=== PATIENT | female | born 1980 | race Two or more races ===

== ENCOUNTER 2025-04-17 04:09 | Inpatient (IN) | payer MEDICAID, OTHER ==
[~2025-04-17] VITALS: Ht 157.5 cm; Wt 85.0 kg
--- NOTE | 2025-04-17 06:22 | ED.PDOC ---
Eye-HPI HPI Comments 45 y/o F, presents to the ED for CC of facial pain. Patient states, she has been experiencing right sided ear and eye pain with associated numbness sudden onset, yesterday (04/16/25). Patient reports, since commencement of symptoms she has had decreased sensation on the right side of her face. Patient denies pain when eating, headache, photophobia, or discharge of the eye. No other symptoms or modifying factors are present at this time. Chief Complaint: Face pain Time Seen by MD: 06:22 Reviewed Notes: Nurses Notes, Medications, Allergies Allergies: Coded Allergies: No Known Drug Allergy (Verified Allergy, Unknown, 04/17/25) Information Source: Patient Mode of Arrival: Ambulatory Timing: Days Duration: Since onset Prehospital treatment: None Lids: Normal Conjunctiva: Normal Cornea: Normal Pupils: Normal EOM: Normal Fundus: Normal Slit lamp exam: Normal Anterior chamber: Normal Mouth: Normal ENT Ear Exam: Normal Nose: Normal Sinuses: Normal Oropharynx: Normal Onset: Spontaneous Throat Exposed to: None History of: None Last Tetanus: Unknown Associated signs and symptoms: Ear Pain Past Medical History PAST MEDICAL HISTORY: Denies Surgical History: Denies all surgeries CLASSIFICATION CONTROL CLERK History: Denies all CLASSIFICATION CONTROL CLERK Hx Family History Family History: Unknown Social History Smoker: Non-Smoker Alcohol: Denies ETOH Use Drugs: Denies Drug Use Lives In: Home Constitutional: denies: chills, diaphoresis, fatigue, fever, malaise, sweats, weakness, others EENTM: reports: ear pain, eye pain, others (FACE PAIN); denies: blurred vision, double vision, ear bleeding, ear discharge, ear drainage, ear ringing, eye redness, hearing loss, mouth pain, mouth swelling, nasal discharge, nose bleeding, nose congestion, nose pain, photophobia, tearing, throat pain, throat swelling, voice changes Respiratory: denies: cough, hemoptysis, orthopnea, SOB at rest, shortness of breath, SOB with excertion, stridor, wheezing, others Cardiovascular: denies: chest pain, dizzy spells, diaphoresis, Dyspnea on exertion, edema, irregular heart beat, left arm pain, lightheadedness, palpitations, PND, syncope, others Gastrointestinal: denies: abdomen distended, abdominal pain, blood streaked bowels, constipated, diarrhea, dysphagia, difficulty swallowing, hematemesis, melena, nausea, poor appetite, poor fluid intake, rectal bleeding, rectal pain, vomiting, others Genitourinary: denies: abnormal vagina bleeding, burning, dyspareunia, dysuria, flank pain, frequency, hematuria, incontinence, pain, , vagina discharge, urgency, others Neurological: denies: dizziness, fainting, headache, left sided numbness, left sided weakness, numbness, paresthesia, pre-existing deficit, right sided numbness, right sided weakness, seizure, speech problems, tingling, tremors, weakness, others Musculoskeletal: denies: back pain, gout, joint pain, joint swelling, muscle pain, muscle stiffness, neck pain, others Integumetry: denies: bruises, change in color, change in hair/nails, dryness, laceration, lesions, lumps, rash, wounds, others Allergic/Immunocompromised: denies: Difficulty Healing, Frequent Infections, Hives, Itching, others Hematologic/Lymphatic: denies: anemia, blood clots, easy bleeding, easy bruising, swollen glands, others Endocrine: denies: excessive hunger, excessive sweating, excessive thirst, excessive urination, flushing, intolerance to cold, intolerance to heat, unexplained weight gain, unexplained weight loss, others Psychiatric: denies: anxiety, bipolar disorder, depression, hopeless, panic disorder, schizophrenia, sleepless, suicidal, others All Other Systems: Reviewed and Negative Physical Exam General Appearance: Moderate Distress HEENT: Normal ENT Inspection, Pharynx Normal, TMs Normal Neck: Full Range of Motion, Non-Tender, Normal, Normal Inspection Respiratory: Chest Non-Tender, Lungs Clear, No Accessory Muscle Use, No Respiratory Distress, Normal Breath Sounds Cardiovascular: No Edema, No JVD, No Murmur, No Gallop, Normal Peripheral Pulses, Regular Rate/Rhythm Breast Exam: Deferred Gastrointestinal: No Organomegaly, Non Tender, No Pulsatile Mass, Normal Bowel Sounds, Soft Genitalia: Deferred Pelvic: Deferred Rectal: Deferred Extremities: No calf tenderness, Normal capillary refill, Normal inspection, Normal range of motion, Non-tender, No pedal edema Musculoskeletal : Apperance: Normal Neurologic: Alert, perfume maker II-XII nml as Tested, No Motor Deficits, Normal Affect, Normal Mood, No Sensory Deficits Cerebellar Function: Normal Reflexes: Normal Skin: Dry, Normal Color, Warm Peripheral Pulses: 3+ Radial (R), 3+ Radial (L) Lymphatic: No Adenopathy Was a procedure done? Was a procedure done?: No EENT DIFF Eye: Corneal Abrasion, Iritis/Uveitis Ear: Otitis Externa, Otitis Media Mouth: Other (TMJ) X-Ray, Labs, Meds, VS Vital Signs Date Time Temp Pulse Resp B/P (MAP) Pulse Ox O2 Delivery O2 Flow Rate FiO2 04/17/25 08:33 78 04/17/25 08:00 98.6 80 15 153/70 (97) 99 98.6 04/17/25 07:58 Room Air* 0 21 04/17/25 06:32 Room Air* 0 21 04/17/25 06:28 98.3 83 13 133/81 (98) 99 98.3 04/17/25 04:12 97.8 91 18 168/86 96 97.8 Lab Test 04/17/25 07:43 Range/Units Urine Color Yellow Yellow Urine Clarity Turbid H Clear Urine pH 6.0 5.0-9.0 Urine Specific [place] 1.035 1.001-1.035 Urine Protein 3+ H Negative Urine Ketones Trace Negative Urine Blood 2+ H Negative /uL Urine Nitrite Negative Negative Urine Bilirubin 1+ H Negative Urine Urobilinogen 3 H Negative mg/dL Urine Leukocyte Esterase Trace Negative /uL Urine RBC 10 0 - 4 /hpf Urine Microscopic WBC 29 H 0-5 /HPF Urine Squamous Epithelial Cells Mod <5 /hpf Urine Bacteria Many H None Seen /hpf Urine Hyaline Casts Mod 0 - 2 /lpf Urine Mucus Few None Seen Urine Glucose 2+ H Normal mg/dL Patient alert. Blood pressure elevated. Saturation pristine on room air. Answering questions. Possible TIA. Moving all extremities. Explained to the patient. Continue monitoring. [address] [address] Ph: [phone] DIAGNOSTIC IMAGING Diagnostic Imaging Report : [id number] Signed PATIENT: DEDRICK KRISHNAN ACCT: [id number] UNIT: [id number] : 1980 LOC: ER ROOM / BED: / AGE / SEX: 45 / F ADM STATUS: REG ER SERVICE 0704 ORDERING PHYSICIAN: STEPHANIE PARKER MD PROCEDURE(s): HWOCT - HEAD WITHOUT CONTRAST REASON: tia ORDER NUMBER(s): [id number], ACCESSION NUMBER(s): [id number] CT brain without contrast CLINICAL INDICATION: tia FINDINGS: The study was performed in a multidetector scanner. This study performed taking axial images from the skull base up to the vertex. Both brain and bone windows are photographed. Dose lowering techniques have been used including automated exposure control and adjustment of mA and/or KV according to patient size. Normal and symmetrical shape and density of brain parenchyma above and below the tentorium is seen. There is no mass, midline shift or hydrocephalus. No intra/extra-axial collections demonstrated. There is no intracranial hemorrhage. The calvarium is intact. IMPRESSION: 1. Normal brain and skull. Computed Tomographic Radiation Dosimetry Report: Total CTDI vol = 54 mGy. mGy Total DLP = 960 mGy-cm All CT scans at this medical facility are performed using dose modulation techniques as appropriate to a performed exam including the following: Automated exposure control was utilized; adjustment of the MA and/or KvP according to patient size; and use of iterative reconstruction technique. ATED BY: DALTON BARRIENTOS MD DICTATED DATE/TIME: 04/17/25822 SIGNED BY: DALTON BARRIENTOS MD SIGNED DATE/TIME: 04/17/25822 CC: Time of 1ST Reevaluation: 06:52 Reevaluation 1ST: Unchanged Patient Education/Counseling: Diagnosis, Treatment Family Education/Counseling: No Family Present SEPSIS Sepsis Screen Date sepsis recognized/suspect: Apr 17, 2025 Time Sepsis recognized/suspect: 041 Recent Procedure: No On Antibiotic Therapy: No Respiratory Rate >20: No Heart Rate >90: Yes Temp<36 C (96.8 F) or >38.3 C: No SBP <90 or MAP <65 mmHG: No New Acute Mental Status Change: No Is the patient on CPAP, BIPAP,: No Physician Orders Head Without Contrast (04/17/25 07:04) Complete Blood Count (04/17/25 07:04) Basic Metabolic Panel (04/17/25 07:04) Vital Signs Date Time Temp Pulse Resp B/P (MAP) Pulse Ox O2 Delivery O2 Flow Rate FiO2 04/17/25 08:33 78 04/17/25 08:00 98.6 80 15 153/70 (97) 99 98.6 04/17/25 07:58 Room Air* 0 21 04/17/25 06:32 Room Air* 0 21 04/17/25 06:28 98.3 83 13 133/81 (98) 99 98.3 04/17/25 04:12 97.8 91 18 168/86 96 97.8 Departure 1 Departure Time of Disposition: 07:16 Impression: Primary Impression: TIA (transient ischemic attack) Disposition: ADMITTED INPATIENT Admit to: Med Surg Condition: Guarded Critical Care Note Critical Care Time?: No Stability Stability form required: No Heart Score Heart Score: Heart Score Response (Comments) Value History N/A 0 EKG N/A 0 Age N/A 0 Risk Factors N/A 0 Troponin N/A 0 Total 0 I personally scribed for STEPHANIE PARKER MD ([email or web address]) on 04/17/25 at 06:22. Electronically submitted by Alisha Bonilla ([email or web address]). I personally scribed for STEPHANIE PARKER MD ([email or web address]) on 04/17/25 at 06:32. Electronically submitted by Alisha Bonilla ([email or web address]). I personally scribed for STEPHANIE PARKER MD ([email or web address]) on 04/17/25 at 08:39. Electronically submitted by Alisha Bonilla ([email or web address]). I personally scribed for STEPHANIE PARKER MD ([email or web address]) on 04/17/25 at 08:40. Electronically submitted by Alisha Bonilla ([email or web address]). STEPHANIE PARKER MD Apr 17, 2025 06:22
[2025-04-17 08:17] LABS: Urine Protein, UAD 3+ (Negative)
--- NOTE | 2025-04-17 08:26 | DVH ---
CT brain without contrast CLINICAL INDICATION: tia FINDINGS: The study was performed in a multidetector scanner. This study performed taking axial image s from the skull base up to the vertex. Both brain and bone windows are photographed. Dose lowering techniques have been used including automated exposure control and adjustment of mA and /or KV according to patient size. Normal and symmetrical shape and density of brain parenchyma above and below the tentorium is seen. T here is no mass, midline shift or hydrocephalus. No intra/extra-axial collections demonstrated. There is no intracranial hemorrhage. The calvarium is intact. IMPRESSION: 1. Normal brain and skull. Computed Tomographic Radiation Dosimetry Report: Total CTDI vol = 54 mGy. mGy Total DLP = 960 mGy-cm All CT scans at this medical facility are performed using dose modulation techniques as appropriate to a performed exam including the following: Automated exposure control was utilized; adjustment of the MA and/or KvP according to patient size; and use of iterative reconstruc tion technique.
[2025-04-17 09:17] VITALS: PULSE 83; RESP 83; O2SAT 98
[2025-04-17 09:24] LABS: Hematocrit 35.1 % (36.0-46.0); Hemoglobin 12.5 g/dL (12.2-16.2); Mean Corpuscular Hemoglobin 29.2 pg (28.0-32.0); Mean Corpuscular Volume 81.9 fL (80.0-100.0); Nucleated Red Blood Cells % 0.1 %
[2025-04-17 09:33] LABS: Chloride 106 mmol/L (98-107); Potassium 4.0 mmol/L (3.5-5.1); Sodium 141 mmol/L (136-145)
[2025-04-17 09:34] LABS: Anion Gap 8 (5-15); Carbon Dioxide 27 mmol/L (20-31)
[2025-04-17 09:35] LABS: Calcium 9.3 mg/dL (8.7-10.4)
[2025-04-17 09:40] LABS: BUN/Creatinine Ratio 23.7 (10.0-20.0); Blood Urea Nitrogen 23 mg/dL (9-23)
[2025-04-17 09:48] LABS: Glucose 161 mg/dL (74-106)
[2025-04-17] MEDS ORDERED: NITROGLYCERIN 0.4 MG SL TAB SL PRN (11:15)
[2025-04-17] MEDS ORDERED: DOCUSATE SOD 100 MG CAP PO PRN (11:15)
[2025-04-17] MEDS ORDERED: MORPHINE SULFATE INJ 2 MG/ml SYRG IV PRN (11:15)
[2025-04-17] MEDS ORDERED: DEXTROSE (50%) 50ML SYRG IV PRN (11:15)
[2025-04-17] MEDS ORDERED: ONDANSETRON HCL 4 MG/2 ML VIAL IV PRN (11:15)
[2025-04-17] MEDS ORDERED: KETOROLAC TROMETH 30 MG/ML 1ML VIAL IV PRN (11:15)
[2025-04-17] MEDS: KETOROLAC TROMETH 30 MG/ML 1ML VIAL IV ONE (11:15)
--- NOTE | 2025-04-17 11:21 | DVHHP2 ---
History of Present Illness Reason for Visit: right facial pain History of Present Illness 45-year-old female with a past medical history of diabetes mellitus and prior surgical history including appendectomy, cholecystectomy, and section presents with right-sided facial pain. The pain began yesterday and has progressively worsened today. The patient describes the pain as starting from the right side of her face and radiating to her right eye and right ear. She also reports associated nausea and numbness on the right side of her face, but denies any facial droop, visual disturbances, dizziness, dental pain, gum bleeding, or headache. She states that nothing alleviates or worsens the pain. On ED evaluation, she was given Zofran for nausea and morphine for pain. Initial labs showed a CBC within normal limits, glucose elevated at 161, and an otherwise unremarkable CMP. UA showed a few bacteria; urine culture was sent, and she was empirically started on Septra ([id number]). CT scan of the brain was negative for acute intracranial pathology. CT of the auditory canals was ordered to further evaluate for possible otologic causes. Additional pain management included IV fluids, Toradol, and morphine. The patient will be admitted for pain control and further evaluation of her symptoms. Past Medical History See HPI above Past Surgical History See HPI above Family History Reviewed, non-contributory to the management of this case. Past Social History The patient lives at home, denies smoking, alcohol or illicit drugs abuse. Review of Systems Constitutional: No: Fever, Chills, Sweats, Weakness, Malaise, Other Eyes: No: Pain, Vision change, Conjunctivae inflammation, Eyelid inflammation, Other, Redness ENT: Other (Right-sided face pain); No: Ear pain, Ear discharge, Nose pain, Nose discharge, Nose congestion, Mouth pain, Mouth swelling, Throat pain, Throat swelling Respiratory: No: Cough, Dry, Shortness of breath, SOB with excertion, Wheezing, Hemoptysis, Pleuritic Pain, Sputum, Wheezing, Other Cardiovascular: No: Chest Pain, Palpitations, Orthopnea, Paroxysmal Noc. Dyspnea, Edema, Lt Headedness, Other Gastrointestinal: No: Nausea, Vomiting, Abdominal Pain, Diarrhea, Constipation, Melena, Hematochezia, Other Genitourinary: No Dysuria, No Frequency, No Incontinence, No Hematuria, No Retention, No Other Musculoskeletal: No: other, neck pain, shoulder pain, arm pain, back pain, hand pain, leg pain, foot pain Skin: No: Rash, Lesions, Jaundice, Bruising, Other Neurological: No: Weakness, Numbness, Incoordination, Change in speech, Confusion, Seizures, Other Allergies: Coded Allergies: No Known Drug Allergy (Verified Allergy, Unknown, 04/17/25) Medications Current Medications Medications Dose Ordered Sig/Gal Route Start Time Stop Time Status Last Admin Dose Admin Ondansetron HCl 4 mg Q4HP PRN IV 04/17/25 11:15 UNV Docusate Sodium 100 mg BIDPRN PRN PO 04/17/25 11:15 UNV Morphine Sulfate 2 mg Q4HPRN PRN IV 04/17/25 11:15 UNV Nitroglycerin 0.4 mg Q5MINP PRN SL 04/17/25 11:15 UNV Ketorolac Tromethamine 15 mg Q6HPRN PRN IV 04/17/25 11:15 04/22/25 11:14 UNV Diagnostic Test (Pha) 1 strip ACHS 04/17/25 11:30 UNV Insulin Human Regular ACHS SC 04/17/25 11:30 UNV Dextrose 50 ml UD PRN IV 04/17/25 11:15 UNV Ceftriaxone Sodium 50 ml @ 100 mls/hr DAILY@09 IV 04/18/25 09:00 UNV Exam Vital Signs Vital Signs Date Time Temp Pulse Resp B/P (MAP) Pulse Ox O2 Delivery O2 Flow Rate FiO2 04/17/25 09:17 83 83 98 Room Air* 0 21 04/17/25 09:17 97.9 13/79 (57) 97.9 General Appearance: Alert, Oriented X3, Cooperative, No acute distress HEENT: Atraumatic, PERRLA, EOMI, Mucous membr. moist/pink Respiratory: Clear to auscultation, Normal air movement Cardiovascular: Regular rate, Normal S1, Normal S2, No murmurs Abdominal: Normal bowel sounds, Soft, No tenderness, No hepatospenomegaly, No masses Extremities: No clubbing, No cyanosis, No edema, Normal pulses, No tenderness/swelling Skin: No rashes, No breakdown, No significant lesion Neuro: Other (Neuro nonfocal no facial droop noted) Psych/Mental Status: Mental status NL, Mood NL Labs/Xrays CT scan of the brain unremarkable I reviewed labs, imaging CT scan abdomen pelvis, EKG and all diagnostic studies on this patient from ED records and the medical chart Labs Test 04/17/25 09:00 04/17/25 07:43 Range/Units White Blood Count 9.0 4.4-10.8 10^3/uL Red Blood Count 4.28 4.0-5.20 10^6/uL Hemoglobin 12.5 12.2-16.2 g/dL Hematocrit 35.1 L 36.0-46.0 % Mean Corpuscular Volume 81.9 80.0-100.0 fL Mean Corpuscular Hemoglobin 29.2 28.0-32.0 pg Mean Corpuscular Hemoglobin Concent 35.6 32.0-36.0 g/dL Red Cell Distribution Width 13.7 11.8-14.3 % Platelet Count 212 140-450 10^3/uL Mean Platelet Volume 7.7 6.9-10.8 fL Neutrophils (%) (Auto) 60.0 37.0-80.0 % Lymphocytes (%) (Auto) 31.4 10.0-50.0 % Monocytes (%) (Auto) 5.7 0.0-12.0 % Eosinophils (%) (Auto) 2.5 0.0-7.0 % Basophils (%) (Auto) 0.4 0.0-2.0 % Neutrophils # (Auto) 5.4 1.6-8.6 10 ^3/uL Lymphocytes # (Auto) 2.8 0.4-5.4 10 ^3/uL Monocytes # (Auto) 0.5 0-1.3 10 ^3/uL Eosinophils # (Auto) 0.2 0-0.8 10 ^3/uL Basophils # (Auto) 0 0-0.2 10 ^3/uL Nucleated Red Blood Cells 0.1 % Sodium Level 141 136-145 mmol/L Potassium Level 4.0 3.5-5.1 mmol/L Chloride Level 106 98-107 mmol/L Carbon Dioxide Level 27 20-31 mmol/L Anion Gap 8 5-15 Blood Urea Nitrogen 23 9-23 mg/dL Creatinine 0.97 0.550-1.02 mg/dL Glomerular Filtration Rate Calc 73 >90 mL/min BUN/Creatinine Ratio 23.7 H 10.0-20.0 Serum Glucose 161 H 74-106 mg/dL Calcium Level 9.3 8.7-10.4 mg/dL Urine Color Yellow Yellow Urine Clarity Turbid H Clear Urine pH 6.0 5.0-9.0 Urine Specific [place] 1.035 1.001-1.035 Urine Protein 3+ H Negative Urine Ketones Trace Negative Urine Blood 2+ H Negative /uL Urine Nitrite Negative Negative Urine Bilirubin 1+ H Negative Urine Urobilinogen 3 H Negative mg/dL Urine Leukocyte Esterase Trace Negative /uL Urine RBC 10 0 - 4 /hpf Urine Microscopic WBC 29 H 0-5 /HPF Urine Squamous Epithelial Cells Mod <5 /hpf Urine Bacteria Many H None Seen /hpf Urine Hyaline Casts Mod 0 - 2 /lpf Urine Mucus Few None Seen Urine Glucose 2+ H Normal mg/dL SEPSIS Sepsis Screen Date sepsis recognized/suspect: Apr 17, 2025 Time Sepsis recognized/suspect: 919 Recent Procedure: No On Antibiotic Therapy: No Respiratory Rate >20: No Heart Rate >90: No Temp<36 C (96.8 F) or >38.3 C: No SBP <90 or MAP <65 mmHG: No New Acute Mental Status Change: No Is the patient on CPAP, BIPAP,: No Physician Orders Head Without Contrast (04/17/25 07:04) Admit (04/17/25 11:06) Allergies (04/17/25 11:06) Code Status (04/17/25 11:06) Ondansetron Hcl (Zofran) (04/17/25 11:15) Docusate Sodium Capsule (Colace Capsule) (04/17/25 11:15) Complete Blood Count (04/18/25 04:00) Comprehensive Metabolic Panel (04/18/25 04:00) Cardiac Diet-2gna,Lofat,Lochol (04/17/25 Lunch) Condition: Stable (04/17/25 11:06) BRP (04/17/25 11:06) Morphine Sulfate Injection (04/17/25 11:15) Sequential Compression Device (04/17/25 ) Nitroglycerin Sublingual (Ntrostat Subli (04/17/25 11:15) Stat Ekg For Chest Pain (04/17/25 11:06) Notify Of Changes From Base (04/17/25 11:06) Refractory Furnace Designer For 24 Hours (04/17/25 11:06) Emergency Dysrhythmia Protocol (04/17/25 11:06) Rhythm Strips Once Every Shift (04/17/25 11:06) Oxygen By Nasal Cannula (04/17/25 11:06) Ketorolac Injection (Toradol Injection) (04/17/25 11:15) Ketorolac Injection (Toradol Injection) (04/17/25 11:15) Internal Auditory Canal (04/17/25 11:06) Test, Urine (04/17/25 11:06) Glucose Blood (Accu-Chek Comfort Curve T (04/17/25 11:30) Insulin R (Human) (Insulin R) (04/17/25 11:30) Dextrose 50% Syringe (04/17/25 11:15) Urine Bacterial Culture (04/17/25 11:06) Ceftriaxone 1gm/50ml (Rocephin) (04/18/25 09:00) Ceftriaxone 1gm/50ml (Rocephin) (04/17/25 11:15) Vital Signs Date Time Temp Pulse Resp B/P (MAP) Pulse Ox O2 Delivery O2 Flow Rate FiO2 04/17/25 09:17 83 83 98 Room Air* 0 21 04/17/25 09:17 97.9 83 14 13/79 (57) 98 97.9 04/17/25 08:33 78 04/17/25 08:00 98.6 80 15 153/70 (97) 99 98.6 04/17/25 07:58 Room Air* 0 21 04/17/25 06:32 Room Air* 0 21 04/17/25 06:28 98.3 83 13 133/81 (98) 99 98.3 04/17/25 04:12 97.8 91 18 168/86 96 97.8 Laboratory Tests Test 04/17/25 09:00 White Blood Count 9.0 10^3/uL (4.4-10.8) Assessment/Plan Assessment/Plan 45 yr old female with Right-sided facial pain with radiation to right eye and ear, associated with facial numbness and nausea; admitted for pain control, further imaging, and workup. acute Right Facial Pain, Etiology Unclear CT brain negative; CT auditory canals pending Sudden onset right facial pain radiating to right eye and ear No dental involvement, no fever, no facial droop Monitor for signs of [place] palsy, sinusitis, trigeminal neuralgia, or zoster Admit for pain control with Toradol, morphine PRN acute Right Facial Numbness No facial droop noted on exam Monitor for progression or cranial nerve involvement Neurology consult if persistent or worsening symptoms acute Nausea Likely secondary to facial pain or neuropathic origin Treated with Zofran in ED, continue PRN acute Urinary Tract Infection (suspected) UA: few bacteria; no nitrites or leukocyte esterase noted Started empirically on ceftriaxone pending urine culture results Diabetes Mellitus Glucose 161 in ED Monitor FSBS ISS chronic problems Diabetes mellitus Post-appendectomy Post-cholecystectomy section (history) fen/ppx Fluids: hl Electrolytes: Monitor BMP daily Nutrition: Regular diet as tolerated DVT Prophylaxis: SCDs while inpatient GI Prophylaxis: no gi ppx no hx of gerds or gi bleed DISPOSITION: Admit to medicine service for management of right-sided facial pain with associated numbness and nausea. Continue pain control measures and monitor for neurologic progression. Await CT auditory canals for further evaluation. Continue empiric UTI treatment pending culture. Monitor glucose and maintain hydration. Plan discussed with: Patient My Orders Orders - MASSIEL KUMAR DNP Procedure Category Date Status Time Admit ADMIT 04/17/25 Transmitted 11:06 Allergies [facility] 04/17/25 In Process 11:06 Code Status CODE 04/17/25 Transmitted 11:06 Ondansetron Hcl [facility] 04/17/25 Logged (Zofran) 11:15 Docusate Sodium [facility] 04/17/25 Logged Capsule (Colace 11:15 Complete Blood Count LAB 04/18/25 Verified 04:00 Comprehensive LAB 04/18/25 Verified Metabolic Panel 04:00 Cardiac DIET 04/17/25 Transmitted Diet-2gna,Lofat,Lochol Lunch Condition: Stable [facility] 04/17/25 In Process 11:06 BRP [facility] 04/17/25 In Process 11:06 Morphine Sulfate [facility] 04/17/25 Logged Injection 11:15 Sequential [facility] 04/17/25 In Process Compression Device Nitroglycerin [facility] 04/17/25 Logged Sublingual (Ntrostat 11:15 Stat Ekg For Chest [facility] 04/17/25 In Process Pain 11:06 Notify Of Changes [facility] 04/17/25 In Process From Base 11:06 Refractory Furnace Designer For [facility] 04/17/25 In Process 24 Hours 11:06 Emergency Dysrhythmia [facility] 04/17/25 In Process Protocol 11:06 Rhythm Strips Once TIANA 04/17/25 In Process Every Shift 11:06 Oxygen By Nasal RT 04/17/25 Transmitted Cannula 11:06 Ketorolac Injection [facility] 04/17/25 Logged (Toradol Injection) 11:15 Ketorolac Injection [facility] 04/17/25 Logged (Toradol Injection) 11:[address] 04/17/25 Logged Canal 11:06 Test, Urine LAB 04/17/25 Logged 11:06 Glucose Blood [facility] 04/17/25 Logged (Accu-Chek Comfort 11:30 Insulin R (Human) [facility] 04/17/25 Logged (Insulin R) 11:30 Dextrose 50% Syringe [facility] 04/17/25 Logged 11:15 Urine Bacterial [place] 04/17/25 Logged Culture 11:06 Ceftriaxone 1gm/50ml [facility] 04/18/25 Logged (Rocephin) 09:00 Ceftriaxone 1gm/50ml [facility] 04/17/25 Logged (Rocephin) 11:15 Date of Service: Apr 17, 2025 Billing Provider: MASSIEL KUMAR DNP Common Visit Codes: [id number] INP/OBS CARE (HIGH) MASSIEL KUMAR DNP Apr 17, 2025 11:21
[2025-04-17] MEDS: ONDANSETRON HCL 4 MG/2 ML VIAL IV ONE (11:23)
[2025-04-17] MEDS: MORPHINE SULFATE INJ 2 MG/ml SYRG IV ONE (11:25)
[2025-04-17] MEDS: InsuLIN REG 1unit/0.01ml Soln (100units/ml) SC SCH (11:30)
[2025-04-17] MEDS: ACCU-CHEK COMFORT CURVE STRIP VI SCH (11:30)
[2025-04-17 12:04] VITALS: PULSE 83; RESP 17; O2SAT 96
[2025-04-17 12:28] VITALS: BP 167/96; PULSE 84; RESP 18; TEMP 98.3; O2SAT 98
[2025-04-17] MEDS ORDERED: SEMA2INJ3 SC (12:49)
--- NOTE | 2025-04-17 14:00 | DVH ---
CT INTERNAL AUDITORY CANAL INDICATION: eval for intractable right ear pain TECHNIQUE: CT of the temporal bones were performed with high resolution. CT scans at this facility us e dose modulation, iterative reconstruction, and/or weight based dosing when appropriate to reduce ra diation dose to as low as reasonably achievable. No contrast. COMPARISON: None available. FINDINGS: RIGHT EAR: External Ear: The external ear and external auditory canal are normal. The tympanic membrane is mikayla l. calcification of the pinna of the ear, which may be seen in the setting of underlying systemic dis ease such as acromegaly, [place]'s disease, hypoparathyroidism however may also of the secondary to t rauma, frostbite or other inflammatory condition such as relapsing polychondritis. Middle Ear: The epitympanic and mesotympanic cavities are clear. Ossicles: The malleus, incus, and stapes are normal. Mastoid Air Cells: Normally developed and without opacification or erosion. Internal Auditory Canal: Normal. Inner Ear: The cochlea and vestibule are normally developed. Otic capsule bone mineralization is nor mal. Semicircular Canals: All three semicircular canals are normally developed. No superior semicircular canal dehiscence. Facial Nerve: The facial nerve canal's labyrinthine, tympanic, and mastoid segments are normal. Canals and Vasculature: The vestibular and cochlear aqueducts are normal. The petrous carotid canal, jugular foramen and hypoglossal canals are normal. LEFT EAR: External Ear: The external ear and external auditory canal are normal. The tympanic membrane is mikayla l. Middle Ear: The epitympanic and mesotympanic cavities are clear. [place]: The malleus, incus, and stapes are normal. Mastoid Air Cells: Normally developed and without opacification or erosion. Internal Auditory Canal: Normal. Inner Ear: The cochlea and vestibule are normally developed. Otic capsule bone mineralization is nor mal. Semicircular Canals: All three semicircular canals are normally developed. No superior semicircular canal dehiscence. Facial Nerve: The facial nerve canal's labyrinthine, tympanic, and mastoid segments are normal. Canals and Vasculature: The vestibular and cochlear aqueducts are normal. The petrous carotid canal, jugular foramen and hypoglossal canals are normal. OTHER: Partially Visualized Intracranial Structures: Normal. Soft Tissues: Normal Other: None IMPRESSION: No opacification of the mastoid air cells or middle ear cavities. Normal symmetric appearance of the inner ear. Calcification of the pinna of the ear, which may be seen in the setting of underlying systemic diseas e such as acromegaly, [place]'s disease, hypoparathyroidism however may also of the secondary to trau ma, frostbite or other inflammatory condition such as relapsing polychondritis.
[2025-04-17 18:43] VITALS: BP_SYST 115; BP_SYST 158; BP_DIAS 67; BP_DIAS 81; PULSE 61; PULSE 85; RESP 18; RESP 27; TEMP 98.3; TEMP 98.7; O2SAT 99
[2025-04-17] MEDS: MORPHINE SULFATE 4 MG/ML SYR/VIAL IV PRN (18:51)
[2025-04-17 20:59] VITALS: BP 141/75; PULSE 83; RESP 16; TEMP 98; O2SAT 96
[2025-04-17 21:14] VITALS: BP 153/87; PULSE 82; RESP 18; TEMP 97.7; O2SAT 99
[2025-04-18] VITALS (8 sets, daily range): BP systolic 120–162; BP diastolic 75–97; PULSE 74–88; RESP 14–18; TEMP 97.4–98.2; O2SAT 95–99
[2025-04-18] MEDS ORDERED: IBUP200C14 PO (03:00)
[2025-04-18 06:26] LABS: Hematocrit 33.3 % (36.0-46.0); Hemoglobin 12.0 g/dL (12.2-16.2); Mean Corpuscular Hemoglobin 29.6 pg (28.0-32.0); Mean Corpuscular Volume 82.5 fL (80.0-100.0); Nucleated Red Blood Cells % 0.1 %
[2025-04-18 06:29] LABS: Albumin 3.4 g/dL (3.2-4.8); Alkaline Phosphatase 83 U/L (46-116); Anion Gap 8 (5-15); BUN/Creatinine Ratio 22.7 (10.0-20.0); Blood Urea Nitrogen 22 mg/dL (9-23); Calcium 8.8 mg/dL (8.7-10.4); Carbon Dioxide 27 mmol/L (20-31); Chloride 106 mmol/L (98-107); Potassium 4.1 mmol/L (3.5-5.1); Sodium 141 mmol/L (136-145); Total Protein 6.2 g/dL (5.7-8.2)
[2025-04-18 06:30] LABS: Alanine Aminotransferase 57 U/L (7-40); Bilirubin, Total 0.3 mg/dL (0.2-1.0); Glucose 155 mg/dL (74-106)
--- NOTE | 2025-04-18 15:45 | DVHPN2 ---
Subjective , doing well still has numbness right face. Reviewed: H&P Changes from previous H/P or p: No Changes General: Per HPI Eyes: No Pain, No Vision change, No Conjunctivae inflammation, No Eyelid inflammation, No Other, No Redness ENT: No Ear pain, No Ear discharge, No Nose pain, No Nose discharge, No Nose congestion, No Mouth pain, No Mouth swelling, No Throat pain, No Throat swelling; Other (Right-sided face pain) Cardiovascular: No Chest Pain, No Palpitations, No Orthopnea, No Paroxysmal Noc. Dyspnea, No Edema, No Lt Headedness, No Other Respiratory: No Cough, No Dry, No Shortness of breath, No SOB with excertion, No Wheezing, No Hemoptysis, No Pleuritic Pain, No Sputum, No Other Gastrointestinal: No Nausea, No Vomiting, No Abdominal Pain, No Diarrhea, No Constipation, No Melena, No Hematochezia, No Other Genitourinary: No Dysuria, No Frequency, No Incontinence, No Hematuria, No Retention, No Other Musculoskeletal: No other, No neck pain, No shoulder pain, No arm pain, No back pain, No hand pain, No leg pain, No foot pain Skin: No Rash, No Lesions, No Jaundice, No Bruising, No Other Objective Vitals Vital Signs Date Time Temp Pulse Resp B/P (MAP) Pulse Ox O2 Delivery O2 Flow Rate FiO2 04/18/25 12:57 97.4 82 14 157/93 (114) 96 97.4 04/17/25 12:04 Room Air* 0 21 Intake/Output Intake and Output 04/18/25 07:00 Intake Total 960 ml Balance 960 ml Intake Oral 960 ml # Voids 1 Exam GEN: Healthy appearing, well-developed, NAD. HEENT: NC/AT; MMM. CV: RRR, no m/r/g. LUNGS: CTAB, no w/r/c. ABD: Soft, NT/ND, NBS, no masses or organomegaly. EXT: skin Warm, well perfused. no rashes. No clubbing, cyanosis, or edema. NEURO: Right face V2 numbness also some V3 numbness. Right hand numbness. Strength intact 5/5 all extremities reflexes intact, no other focal neurology deficits. HEENT exam negative Carlos Alberto-Hallpike negative. Medications Current Medications Medications Dose Ordered Sig/Agl Route Start Time Stop Time Status Last Admin Dose Admin Ondansetron HCl 4 mg Q4HP PRN IV 04/17/25 11:15 Docusate Sodium 100 mg BIDPRN PRN PO 04/17/25 11:15 Nitroglycerin 0.4 mg Q5MINP PRN SL 04/17/25 11:15 Ketorolac Tromethamine 15 mg Q6HPRN PRN IV 04/17/25 11:15 04/22/25 11:14 Hold Diagnostic Test (Pha) 1 strip ACHS 04/17/25 11:30 04/18/25 12:21 1 STRIP Insulin Human Regular ACHS SC 04/17/25 11:30 04/18/25 12:25 2 UNITS Dextrose 50 ml UD PRN IV 04/17/25 11:15 Ceftriaxone Sodium 50 ml @ 100 mls/hr DAILY@09 IV 04/18/25 09:00 04/18/25 10:28 100 MLS/HR Morphine Sulfate 2 mg Q6HPRN PRN IV 04/17/25 15:30 04/17/25 23:53 2 MG Laboratory Results Laboratory Tests 04/18/25 05:37 Chemistry Test 04/18/25 05:37 Albumin 3.4 g/dL (3.2-4.8) Calcium Level 8.8 mg/dL (8.7-10.4) Total Protein 6.2 g/dL (5.7-8.2) LFT Test 04/18/25 05:37 Alanine Aminotransferase (ALT) 57 U/L (7-40) H Alkaline Phosphatase 83 U/L (46-116) Aspartate Amino Transferase (AST) 53 U/L (13-40) H Total Bilirubin 0.3 mg/dL (0.2-1.0) Urinalysis Test 04/17/25 07:43 Urine Color Yellow (Yellow) Urine Clarity Turbid (Clear) H Urine pH 6.0 (5.0-9.0) Urine Specific [place] 1.035 (1.001-1.035) Urine Protein 3+ (Negative) H Urine Ketones Trace (Negative) Urine Blood 2+ /uL (Negative) H Urine Nitrite Negative (Negative) Urine Bilirubin 1+ (Negative) H Urine Urobilinogen 3 mg/dL (Negative) H Urine Leukocyte Esterase Trace /uL (Negative) Urine RBC 10 /hpf (0 - 4) Urine Microscopic WBC 29 /HPF (0-5) H Urine Squamous Epithelial Cells Mod /hpf (<5) Urine Bacteria Many /hpf (None Seen) H Urine Hyaline Casts Mod /lpf (0 - 2) Urine Mucus Few (None Seen) Urine Glucose 2+ mg/dL (Normal) H Urine Test Negative (Negative) Microbiology Microbiology Date/Time Source Procedure Growth Status 04/17/25 07:43 Voided Urine Urine Culture - Preliminary Resulted Labs and/or images reviewed: Labs reviewed by me, Image(s) reviewed by me Assessment/Plan Assessment/Plan 45-year-old female with a past medical history of diabetes mellitus and prior surgical history including appendectomy, cholecystectomy, and section presents with right-sided facial pain. The pain began yesterday and has progressively worsened today. The patient describes the pain as starting from the right side of her face and radiating to her right eye and right ear. She also reports associated nausea and numbness on the right side of her face, but denies any facial droop, visual disturbances, dizziness, dental pain, gum bleeding, or headache. She states that nothing alleviates or worsens the pain. On ED evaluation, she was given Zofran for nausea and morphine for pain. Initial labs showed a CBC within normal limits, glucose elevated at 161, and an otherwise unremarkable CMP. UA showed a few bacteria; urine culture was sent, and she was empirically started on Septra ([id number]). CT scan of the brain was negative for acute intracranial pathology. CT of the auditory canals was ordered to further evaluate for possible otologic causes. Additional pain management included IV fluids, Toradol, and morphine. The patient will be admitted for pain control and further evaluation of her symptoms. 04/18: We will get ESR CRP, MRI brain today,. She has continued right facial numbness and right hand numbness. Carlos Alberto-Hallpike negative, NC exam negative,. She also has some right ear ringing, tympanic membrane clear, no rash or vesicles in right ear. Diagnosis: acute Right Facial numbness, Etiology Unclear , rule out CVA Ruled out VZV infection acute Nausea, acute Urinary Tract Infection Diabetes Mellitus Post-appendectomy Post-cholecystectomy hx of section plan: - ESR, MRI brain today. - IV antibiotics ceftriaxone for possible UTI Pain control prn analgesia Sliding scale insulin Med surge Full code Plan discussed with: Patient My Orders Orders - DAMIEN FRIAS MD Procedure Category Date Status Time Brain Head Wo Contrast MRI 04/18/25 Logged 15:33 Erythrocyte LAB 04/18/25 Logged Sedimentation Rate 15:33 C-Reactive Protein LAB 04/18/25 Logged 15:33 Complete Blood Count LAB 04/18/25 Logged 15:33 Date of Service: Apr 18, 2025 Billing Provider: DAMIEN FRIAS MD Common Visit Codes: [id number] INP/OBS CARE(HIGH) DAMIEN FRIAS MD Apr 18, 2025 15:45
[2025-04-18 15:54] LABS: Hematocrit 33.9 % (36.0-46.0); Hemoglobin 12.0 g/dL (12.2-16.2); Mean Corpuscular Hemoglobin 29.5 pg (28.0-32.0); Mean Corpuscular Volume 83.0 fL (80.0-100.0); Nucleated Red Blood Cells % 0.1 %
[2025-04-19 01:00] VITALS: BP 157/84; PULSE 92; RESP 18; TEMP 98; O2SAT 96
--- NOTE | 2025-04-19 04:25 | DVH ---
EXAM: CT HEAD WITHOUT CONTRAST INDICATION: interval ct, to r/o 24hr cva changes TECHNIQUE: CT of the head without intravenous contrast. Radiation Dose : 1. Head: CT Dose: CTDI volume is 53.88 mGy. Dose-length product is 755.97 mGy*cm The dose indicators for CT are the volume Computed Tomography (CT) Dose Index (CTDIvol) and the Dose Length Product (DLP), and are measured in units of mGy and mGy-cm, respectively. These indicators are not patient dose, but values generated from the CT scanner acquisition factors. The report includes radiation exposure data for exposures received during this examination. COMPARISON: CT INTERNAL AUDITORY CANAL on DOS: 04/17/25, CT HEAD WITHOUT CONTRAST on DOS: 04/17/25 FINDINGS: There is no evidence of acute intracranial hemorrhage, extra-axial collection, mass effect, midline s hift, herniation or hydrocephalus. The ventricles, sulci and cisterns are age appropriate. The gallego-white differentiation is intact. The visualized paranasal sinuses and mastoid air cells are clear. The surrounding soft tissues and osseous structures are unremarkable. IMPRESSION: 1. No acute intracranial abnormality. Radiation optimization: All CT scans at this facility use at least one of these dose optimization bonny hniques: automated exposure control mA and/or kV adjustment per patient size (includes targeted exam s where dose is matched to clinical indication) or iterative reconstruction.
[2025-04-19 05:00] VITALS: BP 158/90; PULSE 81; RESP 18; TEMP 97.8; O2SAT 97
[2025-04-19 06:33] LABS: Alanine Aminotransferase 64 U/L (7-40); Albumin 3.7 g/dL (3.2-4.8); Alkaline Phosphatase 88 U/L (46-116); Anion Gap 11 (5-15); BUN/Creatinine Ratio 24.7 (10.0-20.0); Bilirubin, Total 0.4 mg/dL (0.2-1.0); Blood Urea Nitrogen 23 mg/dL (9-23); Calcium 9.1 mg/dL (8.7-10.4); Carbon Dioxide 26 mmol/L (20-31); Chloride 105 mmol/L (98-107); Glucose 137 mg/dL (74-106); Potassium 3.8 mmol/L (3.5-5.1); Sodium 142 mmol/L (136-145); Total Protein 6.7 g/dL (5.7-8.2)
[2025-04-19 07:55] VITALS: PULSE 85; RESP 18; O2SAT 95
[2025-04-19 09:00] VITALS: BP 139/80; PULSE 89; RESP 17; TEMP 98; O2SAT 98
[2025-04-19] MEDS: methylPREDNISolone SOD SUCC 40 MG/ML VL IV SCH (10:11)
--- NOTE | 2025-04-19 10:13 | DVHDS2 ---
Discharge Summary Date of Admission Apr 17, 2025 at 11:06 Date of Discharge: Apr 19, 2025 Labs/Diagnostic Data: Laboratory Results Test 04/19/25 05:30 04/19/25 05:15 04/18/25 15:43 04/17/25 07:43 Sodium Level 142 mmol/L (136-145) Potassium Level 3.8 mmol/L (3.5-5.1) Chloride Level 105 mmol/L (98-107) Carbon Dioxide Level 26 mmol/L (20-31) Anion Gap 11 (5-15) Blood Urea Nitrogen 23 mg/dL (9-23) Creatinine 0.93 mg/dL (0.550-1.02) Glomerular Filtration Rate Calc 76 mL/min (>90) BUN/Creatinine Ratio 24.7 (10.0-20.0) Serum Glucose 137 mg/dL (74-106) Calcium Level 9.1 mg/dL (8.7-10.4) Total Bilirubin 0.4 mg/dL (0.2-1.0) Aspartate Amino Transferase (AST) 64 U/L (13-40) Alanine Aminotransferase (ALT) 64 U/L (7-40) Alkaline Phosphatase 88 U/L (46-116) Total Protein 6.7 g/dL (5.7-8.2) Albumin 3.7 g/dL (3.2-4.8) POC Glucose 129 mg/dl (70-106) White Blood Count 8.2 10^3/uL (4.4-10.8) Red Blood Count 4.09 10^6/uL (4.0-5.20) Hemoglobin 12.0 g/dL (12.2-16.2) Hematocrit 33.9 % (36.0-46.0) Mean Corpuscular Volume 83.0 fL (80.0-100.0) Mean Corpuscular Hemoglobin 29.5 pg (28.0-32.0) Mean Corpuscular Hemoglobin Concent 35.5 g/dL (32.0-36.0) Red Cell Distribution Width 13.4 % (11.8-14.3) Platelet Count 195 10^3/uL (140-450) Mean Platelet Volume 7.6 fL (6.9-10.8) Neutrophils (%) (Auto) 57.5 % (37.0-80.0) Lymphocytes (%) (Auto) 32.8 % (10.0-50.0) Monocytes (%) (Auto) 6.2 % (0.0-12.0) Eosinophils (%) (Auto) 3.0 % (0.0-7.0) Basophils (%) (Auto) 0.5 % (0.0-2.0) Neutrophils # (Auto) 4.7 10 ^3/uL (1.6-8.6) Lymphocytes # (Auto) 2.7 10 ^3/uL (0.4-5.4) Monocytes # (Auto) 0.5 10 ^3/uL (0-1.3) Eosinophils # (Auto) 0.2 10 ^3/uL (0-0.8) Basophils # (Auto) 0 10 ^3/uL (0-0.2) Nucleated Red Blood Cells 0.1 % Erythrocyte Sedimentation Rate 53 mm/hr (0-20) C-Reactive Protein High Sensitivity 0.45 mg/dL (<1.0) Urine Color Yellow (Yellow) Urine Clarity Turbid (Clear) Urine pH 6.0 (5.0-9.0) Urine Specific [place] 1.035 (1.001-1.035) Urine Protein 3+ (Negative) Urine Ketones Trace (Negative) Urine Blood 2+ /uL (Negative) Urine Nitrite Negative (Negative) Urine Bilirubin 1+ (Negative) Urine Urobilinogen 3 mg/dL (Negative) Urine Leukocyte Esterase Trace /uL (Negative) Urine RBC 10 /hpf (0 - 4) Urine Microscopic WBC 29 /HPF (0-5) Urine Squamous Epithelial Cells Mod /hpf (<5) Urine Bacteria Many /hpf (None Seen) Urine Hyaline Casts Mod /lpf (0 - 2) Urine Mucus Few (None Seen) Urine Glucose 2+ mg/dL (Normal) Urine Test Negative (Negative) Other Laboratory Tests 04/19/25 05:30 04/18/25 15:43 Brief Hx & Hospital Course: 45-year-old female with a past medical history of diabetes mellitus and prior surgical history including appendectomy, cholecystectomy, and section presents with right-sided facial pain. The pain began yesterday and has progressively worsened today. The patient describes the pain as starting from the right side of her face and radiating to her right eye and right ear. She also reports associated nausea and numbness on the right side of her face, but denies any facial droop, visual disturbances, dizziness, dental pain, gum bleeding, or headache. She states that nothing alleviates or worsens the pain. On ED evaluation, she was given Zofran for nausea and morphine for pain. Initial labs showed a CBC within normal limits, glucose elevated at 161, and an otherwise unremarkable CMP. UA showed a few bacteria; urine culture was sent, and she was empirically started on Septra ([id number]). CT scan of the brain was negative for acute intracranial pathology. CT of the auditory canals was ordered to further evaluate for possible otologic causes. Additional pain management included IV fluids, Toradol, and morphine. The patient will be admitted for pain control and further evaluation of her symptoms. 04/18: We will get ESR CRP, MRI brain today,. She has continued right facial numbness and right hand numbness. Carlos Alberto-Hallpike negative, NC exam negative,. She also has some right ear ringing, tympanic membrane clear, no rash or vesicles in right ear. 04/19: Patient likely some version of Vasquez's palsy, repeat CT was also negative for any ischemic changes., unlikely viral mediated as there is no preceding rash. We will start treatment with steroids continue to finish outpatient. Patient to follow up with PCP. Patient will likely need Neurology outpatient referral if symptoms continue. Diagnosis: acute Urinary Tract Infection acute bells palsy, ruled out CVA trigeminal neuralgia unable to ruleout VZV infection, Ruled out acute Nausea, Diabetes Mellitus plan: Keflex 500 mg twice daily for 5 days Prednisone 60 mg daily for 5 days, 40 mg daily for 5 days, 20 mg daily for 5 days, 10 mg daily for 6 days, Take Protonix 40 mg daily for 1 month Take other home medications not mentioned above Follow up with PCP to review discharge, may need Neurology referral if symptoms persist Condition at Discharge: Fair Final Diagnosis/Problems List acute Urinary Tract Infection acute bells palsy, ruled out CVA trigeminal neuralgia unable to ruleout VZV infection, Ruled out acute Nausea, Diabetes Mellitus type2 Discharge Disposition: Home Discharge Instruct/Medications Scheduled Ibuprofen (Advil), 200 MG PO DAILY, (Reported) Miscellaneous Medications Semaglutide (Ozempic), 2 MG SC, (Reported) Discharge Statement: "Patient was advised to return to the ER or call 911 if any headaches, dizziness, shortness of breath, chest pain, abdominal pain, bleeding, fevers, or worsening of medical condition. Patient was counseled about treatment plan, medications, possible side effects, patientverbalized understanding. All questions were answered to the best of my ability. This discharge took greater then 30 minutes in planning, reviewing documentation, counseling the patient, and discussing with other team members." ASSESSMENT ASSESSMENT Assessment Date of Service: Apr 19, 2025 Billing Provider: DAMIEN FRIAS MD Common Visit Codes: 29004-RNV/OBS DISCH DAY >30min DAMIEN FRIAS MD Apr 19, 2025 10:13
[2025-04-19] MEDS ORDERED: PRED20TA2 PO (11:58)
[2025-04-19] MEDS ORDERED: CEPH250C PO (11:58)
[2025-04-19] MEDS ORDERED: PANT40TA2 PO (11:58)
[2025-04-19 12:41] VITALS: BP 134/80; PULSE 89; RESP 16; TEMP 36.7; O2SAT 98
[2025-04-19 13:00] VITALS: BP 145/85; PULSE 89; RESP 17; TEMP 97.9; O2SAT 98
== END 2025-04-19 13:30 | disposition home or self-care (01) | DRG 48 ==
LOC: ER 04:09 → EDBD 04:09 → OVERFLOW 11:06 → EAST 21:14
PROVIDERS: ADMIT Student in an Organized Health Care Education/Training Program; ATTEND Student in an Organized Health Care Education/Training Program
DX: G51.0 Bell's palsy (principal); E11.9 Type 2 diabetes mellitus without complications; N30.00 Acute cystitis without hematuria; G50.0 Trigeminal neuralgia; H93.11 Tinnitus, right ear; Z90.49 Acquired absence of other specified parts of digestive tract; Z98.891 History of uterine scar from previous surgery
CPT/HCPCS: 36415; 70450; 70480; 80048; 80053; 81001; 81025; 82962; 85025; 85652; 86141; 87086; 96365; 96375; G0378; J1815; J1885; J2405